=== PATIENT | female | born 1970 | race Caucasian/White ===

== ENCOUNTER 2021-05-27 13:00 | Outpatient (CLI) | payer BC ==
[2021-05-28 12:08] LABS: SARS-CoV-2 PCR by NAA Not Detected (NotDetected)
== END 2021-05-27 13:01 | disposition home or self-care (01) ==
LOC: CSHLAB 13:00
PROVIDERS: ATTEND Surgery
DX: Z20.822 Contact with and (suspected) exposure to COVID-19 (principal)
CPT/HCPCS: U0003; U0005